=== PATIENT | female | born 1980 | race Caucasian/White ===

== ENCOUNTER 2017-10-13 15:35 | Emergency (ER) | payer OTHER ==
[2017-10-13 15:59] VITALS: BP 129/81
--- NOTE | 2017-10-13 16:20 | UC ---
Throat Pain/Nasal Vinicius HPI - HPI Summary HPI Summary: ST, fatigue starting yesterday. Today has head and chest congestion. Has several school-aged children at home. - History of Current Complaint Chief Complaint: UCGeneralIllness Stated Complaint: SORE THROAT Time Seen by Provider: 10/13/17 16:05 Hx Obtained From: Patient Hx Last Menstrual Period: HX OF ABLATION ?: No Onset/Duration: Gradual Onset, Lasting Days Severity: Mild Pain Intensity: 9 Cough: Productive Associated Signs & Symptoms: Positive: Nasal Discharge. Negative: Vomiting, Rash - Allergies/Home Medications Allergies/Adverse Reactions: Allergies Allergy/AdvReac Type Severity Reaction Status Date / Time No Known Allergies Allergy Verified 12/13/16 11:26 Home Medications: Home Medications Ibuprofen 1,200 mg PO Q8H 10/13/17 [History Confirmed 10/13/17] buPROPion TAB* [Wellbutrin TAB*] 35 mg PO DAILY 10/13/17 [History Confirmed ] PMH/Surg Hx/FS Hx/Imm Hx Respiratory History: Asthma - Surgical History Surgical History: Yes Surgery Procedure, Year, and Place: 2 C-SECT. APPY. BREAST TISSUE LUMPECTOMY. HAND SX. SEPTOPLASTY X 2. ENDOMETRIAL ABLASION - Family History Known Family History: Negative: Blood Disorder - Social History Occupation: Unemployed Lives: With Family Alcohol Use: None Substance Use Type: None Smoking Status (MU): Never Smoked Tobacco Review of Systems Constitutional: Fatigue Skin: Negative Eyes: Negative ENT: Sore Throat, Sinus Congestion Respiratory: Negative Cardiovascular: Negative Gastrointestinal: Negative Genitourinary: Negative Motor: Negative Neurovascular: Negative Musculoskeletal: Negative Neurological: Negative Psychological: Negative Is Patient Immunocompromised?: No All Other Systems Reviewed And Are Negative: Yes Physical Exam Triage Information Reviewed: Yes Appearance: Well-Appearing, Pain Distress - mild Vital Signs: Initial Vital Signs Temp 98.5 F 10/13/17 15:51 Pulse 84 10/13/17 15:51 Resp 18 10/13/17 15:51 BP 129/81 10/13/17 15:51 Pulse Ox 99 10/13/17 15:51 Vital Signs Reviewed: Yes Eye Exam: Normal Eyes: Positive: Conjunctiva Clear ENT: Positive: Pharynx normal, Nasal congestion, TMs normal. Negative: Pharyngeal erythema Dental Exam: Normal Neck exam: Normal Neck: Positive: Supple, Nontender, No Lymphadenopathy Respiratory Exam: Normal Respiratory: Positive: Chest non-tender, Lungs clear, Normal breath sounds, No respiratory distress, No accessory muscle use Cardiovascular Exam: Normal Cardiovascular: Positive: RRR, No Murmur Musculoskeletal Exam: Normal Neurological Exam: Normal Neurological: Positive: Alert Psychological Exam: Normal Skin Exam: Normal Throat Pain/Nasal Course/Dx - Course Course Of Treatment: RST negative - Differential Dx/Diagnosis Provider Diagnoses: URI, likely viral. Elevated blood pressure due to discomfort Discharge - Sign-Out/Discharge Documenting (check all that apply): Patient Departure - Discharge Plan Condition: Stable Disposition: HOME Patient Education Materials: Upper Respiratory Infection (ED) Referrals: Leonides Floyd MD [Primary Care Provider] - Additional Instructions: RAPID STREP NEGATIVE [id number] MEDICINES ARE ONLY INTENDED TO GIVE TEMPORARY RELIEF. YOU SHOULD STOP TAKING ANY COUGH OR COLD PREPARATION THAT FAILS TO MAKE YOU FEEL AT LEAST A LITTLE BIT BETTER. a DECONGESTANT can help with your stuffiness and sinuses. The most effective decongestant is Pseudoephedrine (Sudafed or generic), but you need to ask the pharmacist as it is kept behind the counter. ANTIHISTAMINES are generally NOT helpful in many colds and flus, as they can worsen sore throat and cause dry eyes/mouth and drowsiness. Antihistamines are nearly always found in "nighttime" medicines for their sedating properties ( such as Nyquil). Examples are Diphenhydramine HCL, Doxylamine, and Chlorpheniramine. They may help if you are having profuse clear drainage from the nose. an EXPECTORANT helps thin mucous in the nose and in the chest, making it easier to clear out. Expectorants are in most combination cough/cold remedies and should be taken with plenty of water. Guaifenesin is the most common expectorant , and comes in pill or liquid form (Mucinex is an extended-release form of guaifenesin). a COUGH SUPPRESSANT reduces the body's cough reflex. Dextromethorphan is in over -the-counter products, but sometimes narcotics (such as codeine or hydrocodone) are used for their cough suppressant properties. WHILE THERE IS NO CURE FOR A VIRAL COLD, THERE IS SOME EVIDENCE THAT VITAMIN C, ZINC LOZENGES, AND ECHINACEA CAN HELP SHORTEN THE DURATION OF SYMPTOMS; APPROXIMATE DOSES ARE UP TO 1000mg VITAMIN C PER DAY AND ZINC LOZENGES (MUST BE DISSOLVED IN THE MOUTH AND NOT SWALLOWED) EVERY 2 HOURS WHILE AWAKE. THE DOSE OF ECHINACEA HAS NOT BEEN ESTABLISHED, SO MAKE SURE YOU FOLLOW THE DIRECTIONS ON THE PACKAGE OF ANY PRODUCT YOU CHOOSE TO USE. - Billing Disposition and Condition Condition: STABLE Disposition: Home
== END 2017-10-13 16:29 | disposition home or self-care (01) ==
LOC: UCCORT 15:35
DX: J06.9 Acute upper respiratory infection, unspecified (principal); R03.0 Elevated blood-pressure reading, without diagnosis of hypertension
CPT/HCPCS: 87651; 99211; G0463

== ENCOUNTER 2018-02-17 13:42 | Emergency (ER) | payer OTHER ==
[2018-02-17 13:54] VITALS: BP 115/77
--- NOTE | 2018-02-17 14:03 | UC ---
HPI Febrile Illness - HPI Summary HPI Summary: Pt presents with 3 hours of fatigue, body aches and sore throat. Pt at with daughter with + flu A. Pt's son on abx for strep. No fever, rash too Motrin Meds reviewed not - History of Current Complaint Chief Complaint: UCRespiratory Time Seen by Provider: 02/17/18 13:46 Hx Obtained From: Patient Hx Last Menstrual Period: ENDOMETRIAL ABLASION Onset/Duration: Started Hours Ago Pain Intensity: 5 - Allergy/Home Medications Allergies/Adverse Reactions: Allergies Allergy/AdvReac Type Severity Reaction Status Date / Time No Known Allergies Allergy Verified 02/17/18 13:47 PMH/Surg Hx/FS Hx/Imm Hx Previously Healthy: Yes - Surgical History Surgical History: Yes Surgery Procedure, Year, and Place: 2 C-SECT. APPY. BREAST TISSUE LUMPECTOMY. HAND SX. SEPTOPLASTY X 2. ENDOMETRIAL ABLASION - Family History Known Family History: Positive: Non-Contributory Negative: Blood Disorder - Social History Lives: With Family Alcohol Use: None Substance Use Type: None Smoking Status (MU): Former Smoker When Did the Patient Quit Smoking/Using Tobacco: 2013 Review of Systems All Other Systems Reviewed And Are Negative: Yes Constitutional: Positive: Fatigue ENT: Positive: Sore Throat Musculoskeletal: Positive: Myalgia Physical Exam - Summary Physical Exam Summary: Vital Signs Reviewed: Yes A+Ox3, no distress, tired appearing Eyes: Conjunctiva Clear, LUCY. EOM intact and full ENT: Hearing grossly normal TM x 2 clear, mild nasal congestion, mmoist, uvula midline, no exudate, no erythema Neck: Positive: Supple Respiratory: Positive: No respiratory distress, No accessory muscle use + CTA throughout no w/r Cardiovascular: RRR nl s1, s2 no m/r CBT <2 sec abd soft + BS nt/nd no guarding, no distension Musculoskeletal Exam: KEY x 4 without difficulty Strength Intact, ROM Intact Neurological: Positive: Alert, + sensation throughout Psychological: Positive: Normal Response To Family Skin: Positive: no rash, no ecchymosis Vital Signs: Initial Vital Signs Temp 98.3 F 02/17/18 13:48 Pulse 99 02/17/18 13:48 Resp 18 02/17/18 13:48 BP 115/77 02/17/18 13:48 Pulse Ox 99 02/17/18 13:48 Course/Dx - Course Course Of Treatment: Pt with onset today of body aches, fatigue, and sore throat. son with + strep daughter with influenza A. pt with neg both. will give prophylatic Tamiflu. hydrate. secretion precaution. motrin/apap. humidify - Diagnoses Provider Diagnosis: Viral syndrome Discharge - Sign-Out/Discharge Documenting (check all that apply): Patient Departure All imaging exams completed and their final reports reviewed: No Studies - Discharge Plan Condition: Stable Disposition: HOME Prescriptions: Oseltamivir CAP* [Tamiflu CAP*] 75 mg PO DAILY #10 cap Patient Education Materials: Viral Syndrome (ED) Referrals: Leonides Floyd MD [Primary Care Provider] - Additional Instructions: - Stay well hydrated. Drink plenty of non-alcoholic, non-caffinated beverages. - Alternate ibuprofen (Advil, Motrin) 600mg and Tylenol every 3 hours for pain or fever. Take with food. Do NOT take for more than 4-5 days. - These infections are spread by secretions - do NOT share eating or drinking utensils - clean items you share with other people such as cell phones, computer mouse, TV remote, computer tablets,etc. Once you start to feel better, change your toothbrush and your pillowcase. - you have been prescribed Tamiflu - a prophylaxis treatment dose because your daughter tested positive - it is very important you take as prescribed. - humidify the air in the room where you sleep - boil water, run a hot steam shower, vaporizer, cups of water by heat register - okay to take over the counter decongestant and cough medication - get plenty of restful sleep. - contact your doctor or return with questions or concerns - Billing Disposition and Condition Condition: STABLE Disposition: Home
== END 2018-02-17 14:32 | disposition home or self-care (01) ==
LOC: UCCORT 13:42
DX: B34.9 Viral infection, unspecified (principal); Z20.828 Contact with and (suspected) exposure to other viral communicable diseases; Z87.891 Personal history of nicotine dependence
CPT/HCPCS: 87651; 99212; G0463

== ENCOUNTER 2018-09-10 16:28 | Emergency (ER) | payer OTHER ==
[2018-09-10 16:46] VITALS: BP 119/77
--- NOTE | 2018-09-10 17:00 | UC ---
Throat Pain/Nasal Vinicius HPI - HPI Summary HPI Summary: 38-year-old woman comes in with a chief complaint of sore throat and nasal congestion for 2 days. Pains worse and she swallows. [id number] educations helped briefly but then the pain comes back. She is clear rhinorrhea. No ear pain. She does have a cough and also makes the sore throat worse. She is not a smoker. No shortness breath. - History of Current Complaint Chief Complaint: UCGeneralIllness Stated Complaint: SORE THROAT Time Seen by Provider: 09/10/18 16:42 Hx Last Menstrual Period: ENDOMETRIAL ABLASION Pain Intensity: 10 - Allergies/Home Medications Allergies/Adverse Reactions: Allergies Allergy/AdvReac Type Severity Reaction Status Date / Time No Known Allergies Allergy Verified 09/10/18 16:46 Home Medications: Home Medications Cetirizine* [ZyrTEC 10 MG TAB*] 10 mg PO DAILY 09/10/18 [History Confirmed 09/10] Ibuprofen TAB* [Motrin TAB* 800 MG] 800 mg PO ONCE 09/10/18 [History Confirmed 09/10/18] PMH/Surg Hx/FS Hx/Imm Hx Previously Healthy: Yes - Surgical History Surgical History: Yes Surgery Procedure, Year, and Place: 2 C-SECT. APPY. BREAST TISSUE LUMPECTOMY. HAND SX. SEPTOPLASTY X 2. ENDOMETRIAL ABLASION - Family History Known Family History: Positive: Non-Contributory Negative: Blood Disorder - Social History Alcohol Use: None Substance Use Type: None Smoking Status (MU): Former Smoker When Did the Patient Quit Smoking/Using Tobacco: 2013 Review of Systems All Other Systems Reviewed And Are Negative: Yes Constitutional: Positive: Negative Skin: Positive: Negative Eyes: Positive: Negative ENT: Positive: Sore Throat, Nasal Discharge Motor: Positive: Negative Neurovascular: Positive: Negative Musculoskeletal: Positive: Negative Neurological: Positive: Negative Psychological: Positive: Negative Is Patient Immunocompromised?: No Physical Exam Triage Information Reviewed: Yes Appearance: No Pain Distress, Well-Nourished, Ill-Appearing - MILD Vital Signs: Initial Vital Signs Temp 98.8 F 09/10/18 16:44 Pulse 80 09/10/18 16:44 Resp 16 09/10/18 16:44 BP 119/77 09/10/18 16:44 Pulse Ox 98 07/17/19 16:44 Vital Signs Reviewed: Yes Eye Exam: Normal Eyes: Positive: Conjunctiva Clear ENT: Positive: Pharyngeal erythema, Nasal congestion, Nasal drainage, TMs normal Neck: Positive: Supple Respiratory: Positive: Lungs clear, Normal breath sounds, No respiratory distress Cardiovascular: Positive: RRR Musculoskeletal Exam: Normal Musculoskeletal: Positive: Strength Intact, ROM Intact Neurological Exam: Normal Neurological: Positive: Alert, Muscle Tone Normal Psychological Exam: Normal Psychological: Positive: Age Appropriate Behavior Skin Exam: Normal Throat Pain/Nasal Course/Dx - Course Course Of Treatment: DISCUSSED VIRAL VERSES BACTERIAL INFECTION AND THE ROLE OF ANTIBIOTICS. THE PATIENT PREFERS TO BE ON ANTIBIOTICS AT THIS TIME. - Differential Dx/Diagnosis Provider Diagnosis: Pharyngitis Discharge - Sign-Out/Discharge Documenting (check all that apply): Patient Departure All imaging exams completed and their final reports reviewed: No Studies - Discharge Plan Condition: Stable Disposition: HOME Prescriptions: Amoxicillin PO (*) [Amoxicillin 875 MG (*)] 875 mg PO BID #20 tab Fluconazole 150 MG TAB* [Diflucan 150 MG TAB*] 150 mg PO ONCE #2 tablet Patient Education Materials: Pharyngitis (ED) Referrals: Leonides Floyd MD [Primary Care Provider] - Additional Instructions: FOLLOW UP WITH YOUR DOCTOR IF NOT COMPLETELY IMPROVED. GET REEVALUATED SOONER IF WORSE OR ANY QUESTIONS OR CONCERNS. - Billing Disposition and Condition Condition: STABLE Disposition: Home
== END 2018-09-10 17:04 | disposition home or self-care (01) ==
LOC: UCCORT 16:28
DX: J02.9 Acute pharyngitis, unspecified (principal); Z87.891 Personal history of nicotine dependence
CPT/HCPCS: 99212; G0463

== ENCOUNTER 2019-04-30 09:48 | Emergency (ER) | payer OTHER ==
[2019-04-30 11:43] VITALS: BP 118/89
--- NOTE | 2019-04-30 12:03 | UC ---
FLU HPI - HPI Summary HPI Summary: 38-year-old female presenting with for sore throat, nasal congestion, mild dry cough, and fatigue x3 days. Patient states she had fever and chills at symptom onset but none since. STates she is here today because sore throat not improving. Normal appetite. Taking tylenol and ibuprofen for symptom relief. - History of Current Complaint Chief Complaint: UCRespiratory Stated Complaint: ST Hx Obtained From: Patient Hx Last Menstrual Period: s/p Uterine Ablation Pain Intensity: 5 Pain Scale Used: 0-10 Numeric - Allergy/Home Medications Allergies/Adverse Reactions: Allergies Allergy/AdvReac Type Severity Reaction Status Date / Time No Known Allergies Allergy Verified 04/30/19 11:40 Home Medications: Home Medications buPROPion TAB* [Wellbutrin TAB*] 35 mg PO DAILY 10/13/17 [History Confirmed 07/14] PMH/Surg Hx/FS Hx/Imm Hx - Surgical History Surgical History: Yes Surgery Procedure, Year, and Place: 2 C-SECT. APPY. BREAST TISSUE LUMPECTOMY. HAND SX. SEPTOPLASTY X 2. ENDOMETRIAL ABLASION - Family History Known Family History: Positive: Non-Contributory Negative: Blood Disorder - Social History Alcohol Use: None Substance Use Type: None Smoking Status (MU): Current Every Day Smoker Type: eCigarett When Did the Patient Quit Smoking/Using Tobacco: 2013 Review of Systems All Other Systems Reviewed And Are Negative: Yes Constitutional: Positive: Fever - 3 days ago, Fatigue ENT: Positive: Sore Throat, Sinus Congestion Respiratory: Positive: Cough Cardiovascular: Positive: Negative Gastrointestinal: Positive: Negative Musculoskeletal: Positive: Negative Neurological/Mental Status: Positive: Negative Physical Exam - Summary Physical Exam Summary: Vital Signs Reviewed: Yes A+Ox3, no distress Eyes: Conjunctiva Clear ENT: Hearing grossly normal, TM x 2 clear, moist, uvula midline, no exudate, + pharygneal erythema, no tonsillar swelling Neck: Positive: Supple Respiratory: Positive: No respiratory distress, No accessory muscle use + CTA throughout no w/r Cardiovascular: RRR nl s1, s2 no m/r Musculoskeletal Exam: KEY x 4 without difficulty Neurological: Positive: Alert Psychological: Positive: age appropriate behavior Skin: Positive: no rash, no ecchymosis Vital Signs: Initial Vital Signs Temp 98.9 F 04/30/19 11:37 Pulse 86 03/05/20 11:37 Resp 18 04/30/19 11:37 BP 118/89 04/30/19 11:37 Pulse Ox 100 04/30/19 11:37 Lab Results 04/30/19 04/30/19 Range/Units 11:50 12:22 Influenza A (Rapid) Negative (Negative) Influenza B (Rapid) Negative (Negative) Group A Strep Rapid Negative (Negative) Flu Course/Dx - Course Course Of Treatment: Negative rapid strep and flu. Discussed viral illness with patient and instructed to continue symptomatic treatment. Instructed to follow up with PCP if symptoms persist. Patient voiced understanding and agreed with the treatment plan. - Differential Dx/Diagnosis Differential Diagnosis/HQI/PQRI: Influenza, Upper Respiratory Infection Provider Diagnosis: URI (upper respiratory infection), Pharyngitis Discharge ED - Sign-Out/Discharge Documenting (check all that apply): Patient Departure All imaging exams completed and their final reports reviewed: No Studies - Discharge Plan Condition: Stable Disposition: HOME Patient Education Materials: Pharyngitis (ED) Referrals: Leonides Floyd MD [Primary Care Provider] - If Needed Additional Instructions: As discussed, you tested negative for strep and flu today. You may take ibuprofen and/or tylenol as directed for fever and pain relief. You may use over the counter throat sprays, lozenges, or drink tea with honey for symptomatic relief. Get plenty of rest and fluids. Follow up with your primary care provider if symptoms do not improve within 7- 10 days. - Billing Disposition and Condition Condition: STABLE Disposition: Home
[2019-04-30 12:33] LABS: Influenza A Molecular Negative (Negative); Influenza B Molecular Negative (Negative)
== END 2019-04-30 12:40 | disposition home or self-care (01) ==
LOC: UCCORT 09:48
DX: J06.9 Acute upper respiratory infection, unspecified (principal); J02.9 Acute pharyngitis, unspecified; F17.290 Nicotine dependence, other tobacco product, uncomplicated; R53.83 Other fatigue
CPT/HCPCS: 87651; 99211; G0463